=== PATIENT | male | born 1985 | race Native Hawaiian/Other Pacific Islander ===

== ENCOUNTER 2019-05-05 10:26 | Emergency (ER) | payer OTHER ==
[~2019-05-05] VITALS: Ht 175.3 cm; Wt 79.4 kg
[2019-05-05 10:34] VITALS: TEMP 98.4
[2019-05-05 11:30] VITALS: BP 103/50
== END 2019-05-05 11:31 | disposition home or self-care (01) ==
LOC: ED 10:26
DX: S09.90XA Unspecified injury of head, initial encounter (principal); W22.8XXA Striking against or struck by other objects, initial encounter; Y92.098 Other place in other non-institutional residence as the place of occurrence of the external cause
CPT/HCPCS: 99282; 99283

== ENCOUNTER 2021-11-13 21:05 | Emergency (ER) | payer OTHER ==
[~2021-11-13] VITALS: Ht 175.3 cm; Wt 76.7 kg
[2021-11-13 22:15] LABS: PLATELET COUNT 216 K/uL (142-355)
[2021-11-13 22:25] LABS: POTASSIUM 4.7 mmol/L (3.6-5.2)
[2021-11-13 22:55] VITALS: BP 124/71; TEMP 98.1
== END 2021-11-13 23:00 | disposition home or self-care (01) ==
LOC: ED 21:05
PROVIDERS: Emergency Medicine Emergency Medical Services
DX: R10.13 Epigastric pain (principal); R10.11 Right upper quadrant pain
CPT/HCPCS: 36415; 80053; 82150; 83690; 85027; 96374; 96375; 99284; J2405; J3490

== ENCOUNTER 2022-11-13 15:19 | Outpatient (CLI) | payer OTHER | END 2022-11-13 21:55 | disposition home or self-care (01) | LOC: US 15:19 | PROVIDERS: ATTEND Orthopaedic Surgery | DX: M25.552 Pain in left hip (principal); M25.452 Effusion, left hip; M79.81 Nontraumatic hematoma of soft tissue ==

== ENCOUNTER 2022-11-24 11:00 | Emergency (ER) | payer OTHER ==
[~2022-11-24] VITALS: Ht 175.3 cm; Wt 77.1 kg
[2022-11-24 11:04] VITALS: BP 130/86; TEMP 98.4
== END 2022-11-24 11:57 | disposition home or self-care (01) ==
LOC: ED 11:00
PROC: 0HQGXZZ Repair Left Hand Skin, External Approach (ICD-10-PCS; principal; 2022-11-24)
DX: S61.211A Laceration without foreign body of left index finger without damage to nail, initial encounter (principal); W45.8XXA Other foreign body or object entering through skin, initial encounter
CPT/HCPCS: 90471; 90715; 99283

== ENCOUNTER 2022-11-29 23:48 | Emergency (ER) | payer OTHER ==
[~2022-11-29] VITALS: Ht 175.3 cm; Wt 77.1 kg
[2022-11-30 00:46] VITALS: BP 134/89; TEMP 98.2
== END 2022-11-30 00:46 | disposition home or self-care (01) ==
LOC: ED 23:48
DX: L02.221 Furuncle of abdominal wall (principal); A46 Erysipelas
CPT/HCPCS: 87070; 87077; 87185; 87186; 87205; 99282

== ENCOUNTER 2022-12-16 23:48 | Emergency (ER) | payer OTHER ==
[~2022-12-16] VITALS: Ht 175.3 cm; Wt 77.1 kg
[2022-12-17 00:55] VITALS: BP 130/87; TEMP 98.1
== END 2022-12-17 00:55 | disposition home or self-care (01) ==
LOC: ED 23:48
DX: F41.9 Anxiety disorder, unspecified (principal); F41.0 Panic disorder [episodic paroxysmal anxiety]
CPT/HCPCS: 93005; 99281